=== PATIENT | female | born 1960 | race Two or more races ===

== ENCOUNTER → 2025-01-19 | Emergency (ER) | payer OTHER ==
[~2025-01-19] VITALS: Ht 149.9 cm; Wt 70.8 kg
[~2025-01-19] MED LIST: KETOROLAC TROMETHAMINE 30 MG VIAL IM ONE; KETOROLAC TROMETHAMINE 30 MG VIAL ONE; NORFLEX100MG PO; TYLENOL ARTHRI650 MG PO
== END | disposition home or self-care (01) ==
LOC: ER 12:32
DX: M25.552 Pain in left hip (principal); Z91.041 Radiographic dye allergy status; Z88.8 Allergy status to other drugs, medicaments and biological substances; I10 Essential (primary) hypertension; G43.909 Migraine, unspecified, not intractable, without status migrainosus; M32.8 Other forms of systemic lupus erythematosus; Q87.19 Other congenital malformation syndromes predominantly associated with short stature
CPT/HCPCS: 73503; 73560; 73610; 96372; 99283; J1885